=== PATIENT | male | born 1950 | race Caucasian/White ===

== ENCOUNTER 2018-11-19 09:38 | Emergency (ER) | payer BC ==
[2018-11-19 10:48] VITALS: BP 171/89
[2018-11-19] MEDS ORDERED: HYDROmorphone 2 MG/ML Syringe ONE ×3 (11:33→12:24)
[2018-11-19] MEDS: HYDROmorphone 2 MG/ML Syringe SUBCUT ONE (11:35)
--- NOTE | 2018-11-19 11:43 | CRLCT ---
DATE OF SERVICE: 11/19/2018 CLINICAL DATA: RUQ abdominal mass after coughing Unenhanced chest CT: Multislice acquisition through the chest without IV contrast was performed. No priors. There are emphysematous changes throughout both lungs. There are minimal atelectatic changes in the dependent portion of both lower lungs. There are linear densities in both lung bases consistent with linear atelectasis or fibrosis. The lungs otherwise clear. No areas of consolidation. No pneumothorax. No pleural effusions. The heart size is normal. There is mild coronary artery calcification. No aortic aneurysm. No hilar or mediastinal adenopathy. The thyroid gland is fractionally visualized. It is grossly enlarged. Graves' disease, thyroiditis, and other diffuse thyroid processes should be considered. The right rectus abdominis muscle is diffusely enlarged with heterogeneous attenuation consistent with a rectus abdominis hematoma. It is incompletely visualized on this chest CT. No other significant findings. MTDD
[2018-11-19] MEDS: Sodium Chloride 0.9% 1,000 ML IV SCH (11:55)
[2018-11-19] MEDS: HYDROmorphone 2 MG/ML Syringe IVPUSH ONE (11:55)
--- NOTE | 2018-11-19 12:00 | CRLCT ---
DATE OF SERVICE: 11/19/2018 CLINICAL DATA: Abdominal pain with RUQ mass. Started with coughing. Unenhanced abdomen CT: Multislice acquisition through the abdomen without IV or oral contrast was performed. No priors. The heart size is normal. The unenhanced liver appears normal. The gallbladder appears normal. No calcified gallstones. There are surgical changes adjacent to the GE junction region consistent with prior surgery. The spleen appears normal. The pancreas appears normal. The right and left adrenals appear normal. There is a 16mm rounded fluid density lesion in the interpolar region of the left kidney consistent with a benign cyst. There is a 8mm rounded low density lesion in the upper pole of the right kidney consistent with cyst. They are unchanged from the prior study. No nephrocalcinosis or nephrolithiasis. No hydronephrosis or hydroureter. The bladder is not visualized. The cecum is abnormally located within the midline of the abdomen anteriorly adjacent to the anterior abdominal wall between the stomach and liver. No evidence of obstruction associated with it. There is a large amount of stool present throughout the ascending and transverse colon. There is diverticulosis throughout the colon and severe diverticulosis of the descending colon. Sigmoid colon is not visualized. No evidence of diverticulitis. No free air. No free fluid. No dilated loops of bowel. No adenopathy. No aortic aneurysm. There is a small umbilical hernia containing fat. The right rectus abdominis muscle is grossly enlarged with heterogeneous hyperdensity consistent with a rectus abdominis muscle hematoma. I do not see any other significant findings. Impression: Large right rectus abdominis muscle hematoma. Multiple other findings as discussed above. MTDD
--- NOTE | 2018-11-19 12:18 | ER ---
HPI: A 68-year-old male who comes in with complaints of abdominal discomfort, holding his right upper abdomen in a gaurded fashion. He states that it just started today. The patient states that the pain comes and goes in waves, but with movement it seems like it was worse. He rates his pain as severe 9 or 10/10 with movement. He has not had any recent falls or injuries. The patient tells me that about 3 weeks ago he had an illness where he did a lot of coughing. At one point, he felt like something pulled or possibly tore in the right lower anterior chest wall. After this, his symptoms got better and he has been doing his normal activities. He states that he has worked the last 2 days, he works at a hardware store part- time. The patient has not been running a fever. He states that this morning is when the abdominal pain developed and it has been getting slowly worse. He denies any problems with coughing, shortness of breath, nausea, vomiting, or diarrhea. PAST MEDICAL HISTORY: Gout, hypertension, and chronic pain involving his back. The patient did take an Ultram tablet last evening. He also takes indomethacin p.r.n. for gout and pain. His last dose of this was last evening as well. OBJECTIVE: GENERAL APPEARANCE: The patient is awake and alert. He is in no obvious distress. Lying still. With any movement, he grimaces from pain and holds his right upper quadrant of the abdomen. VITAL SIGNS: Reviewed. Initial blood pressure is 184/100, temp is 99.1, pulse 72, respirations 22. HEENT: Oral mucous membranes moist. Tonsils not enlarged or injected. Pharynx not inflamed. LUNGS: Clear. CARDIAC: Heart sounds distinct without murmurs. ABDOMEN: Reveals an obvious mass in the upper right quadrant that is extremely tender with light palpation only. Bowel sounds are present. The remaining abdominal exam is normal. SKIN: Warm and dry. INITIAL TREATMENT: At this point, the patient states if he lay still, he is fairly comfortable. He is refusing pain medication. LABORATORY DATA: Labs include a CBC which is normal. Comprehensive metabolic panel was also unremarkable. Lipase is normal. Urine is normal. CT of the chest reveals a grossly enlarged thyroid, which is an incidental finding. CT of the abdomen reveals a rectus abdominis muscle hematoma that is diffusely enlarged. DIAGNOSES: 1. Acute abdominal pain with a rectus abdominis muscle hematoma. 2. Enlarged thyroid. TREATMENT PLAN: At this point, I consulted with the hospitalist at [place], who accepted the patient for observation. His condition is getting worse over the time he is spent with us in [place]. His pain is becoming more frequent and lasting longer even at rest. I did give the patient Dilaudid 1 mg subcu after the CT report was in, and we will start an IV with Normal saline and give another milligram of Dilaudid IV. A TSH was ordered. The patient will be transferred to [place] by ground ambulance. Arrangements are being made at this time. AFSHIN/SHITAL /[id number] MTDKatlyn
== END 2018-11-19 12:27 ==
LOC: LB.ED 09:38
DX: S30.1XXA Contusion of abdominal wall, initial encounter (principal); E04.9 Nontoxic goiter, unspecified; I10 Essential (primary) hypertension; X58.XXXA Exposure to other specified factors, initial encounter
CPT/HCPCS: 36415; 71250; 74150; 80053; 81001; 83690; 84443; 85025; 96372; 96374; 99285-25; A0425; A0429; J1170; J7030

== ENCOUNTER 2020-06-08 14:30 | Emergency (ER) | payer MEDICARE ==
[2020-06-08 14:58] LABS: CORONAVIRUS COVID-19 RAPID NEGATIVE
== END 2020-06-08 15:15 | disposition home or self-care (01) ==
LOC: LB.ED 14:30
DX: Z53.21 Procedure and treatment not carried out due to patient leaving prior to being seen by health care provider (principal)
CPT/HCPCS: U0002

== ENCOUNTER 2020-10-22 12:07 | Emergency (ER) | payer MEDICARE ==
[2020-10-22 12:50] VITALS: BP 138/83; PULSE 97
--- NOTE | 2020-10-22 13:17 | EDM.PDOC ---
ED HPI GENERAL MEDICAL PROBLEM - General Chief Complaint: General Stated Complaint: HEAD INJURY DUE TO FALL ON 10/15/20 AND RIB PAIN Time Seen by Provider: 10/22/20 12:30 Source of Information: Reports: Patient History Limitations: Reports: No Limitations - History of Present Illness INITIAL COMMENTS - FREE TEXT/NARRATIVE: 70 year old male with PMH of HTN and gout presents to ED seeking detox and treatment for alcohol. He states he has been heavily drinking for 1.5 years after his divorce. Admits to having only one vodka drink today. He has had tremors before but denies any withdrawl seizures. Denies any SI/HI. He also c/o dizziness and right rib pain. Onset: Today - Related Data Allergies Allergy/AdvReac Type Severity Reaction Status Date / Time house dust Allergy Mild Cannot Verified 10/22/20 12:41 Remember Home Meds: Home Meds amLODIPine Besylate [Amlodipine Besylate] 10 tab PO DAILY 10/21/13 [History] diphenhydrAMINE [Benadryl] 25 mg PO Q6H PRN 10/21/13 [History] traMADol [Ultram] 50 mg PO Q6HR PRN 10/21/13 [History] Naproxen 500 mg PO Q12HR 09/28/14 [History] hydroCHLOROthiazide [Hydrochlorothiazide] 25 mg PO DAILY 11/19/18 [History] lisinopriL [Prinivil] 40 mg PO DAILY 11/19/18 [History] ED ROS GENERAL - Review of Systems Review Of Systems: See Below Constitutional: Reports: No Symptoms HEENT: Reports: No Symptoms Respiratory: Reports: No Symptoms Cardiovascular: Reports: No Symptoms Endocrine: Reports: No Symptoms GI/Abdominal: Reports: No Symptoms : Reports: No Symptoms Musculoskeletal: Reports: No Symptoms, Other (right sided rib pain, xray reveals a fracture in the 10th rib) Skin: Reports: Bruising, Other (right ribs) Neurological: Reports: Dizziness Psychiatric: Reports: Anxiety Hematologic/Lymphatic: Reports: No Symptoms Immunologic: Reports: No Symptoms ED EXAM, GENERAL - Physical Exam Exam: See Below Exam Limited By: No Limitations General Appearance: Alert, No Apparent Distress Eye Exam: Bilateral Eye: Nystagmus, PERRL Ears: Normal External Exam, Normal Canal, Hearing Grossly Normal, Normal TMs Ear Exam: Bilateral Ear: Auricle Normal, Canal Normal, TM normal Nose: Normal Inspection, Normal Mucosa, No Blood Throat/Mouth: Normal Inspection, Normal Lips, Normal Teeth, Normal Gums, Normal Oropharynx, Normal Voice, No Airway Compromise Head: Atraumatic, Other (no wounds or bruising noted from slip and fall 1 week ago) Neck: Normal Inspection, Non-Tender, Full Range of Motion Respiratory/Chest: No Respiratory Distress, Lungs Clear, Normal Breath Sounds, No Accessory Muscle Use Cardiovascular: Normal Peripheral Pulses, Regular Rate, Rhythm, No Edema, No JVD, No Murmur Peripheral Pulses: 3+: Carotid (L), Carotid (R), Radial (L), Radial (R), Posterior Tibial (L), Posterior Tibial (R) GI/Abdominal: Normal Bowel Sounds, Soft, Non-Tender (Male) Exam: Deferred Rectal (Males) Exam: Deferred Back Exam: Normal Inspection, Full Range of Motion, Other (chronic back pain controlled with tramadol, scarring present from previous surgeries) Extremities: Normal Inspection, Normal Range of Motion, Non-Tender, No Pedal Edema, Normal Capillary Refill Neurological: Alert, Oriented, Normal Cognition, Normal Gait, No Motor/Sensory Deficits Psychiatric: Normal Affect, Normal Mood, Anxious Skin Exam: Warm, Dry, Intact, No Rash Lymphatic: No Adenopathy Course - Vital Signs Last Recorded V/S: Last Vital Signs Temp 98.6 F 10/22/20 12:46 Pulse 97 10/22/20 12:46 Resp 16 10/22/20 12:46 BP 138/83 10/22/20 12:46 Pulse Ox 98 10/22/20 12:46 - Orders/Labs/Meds Orders: Active Orders 24 hr Category Date Time Status CIWAA Assessment [RC] Q30M Care 10/22/20 12:51 Active Labs: Laboratory Tests 10/22/20 10/22/20 10/22/20 Range/Units 12:51 12:51 12:51 WBC 8.7 D (4.0-11.0) K/uL RBC 4.25 L (4.50-6.50) M/uL Hgb 14.6 (13.0-18.0) g/dL Hct 41.7 (40.0-54.0) % MCV 98 H (76-96) fL MCH 34.4 H (27.0-32.0) pg MCHC 35.0 (31.0-35.0) g/dL RDW 13.5 (11.0-16.0) % Plt Count 252 (150-400) K/uL MPV 10.2 H (6.0-10.0) fL Neut % (Auto) 63.6 (45.0-70.0) % Lymph % (Auto) 26.3 (20.0-40.0) % [place] % (Auto) 8.4 (3.0-10.0) % Eos % (Auto) 0.8 L (1.0-5.0) % Baso % (Auto) 0.9 H (0.0-0.5) % Neut # (Auto) 5.53 (2.00-7.50) K/uL Lymph # (Auto) 2.29 (1.50-4.00) K/uL [place] # (Auto) 0.73 (0.20-0.80) K/uL Eos # (Auto) 0.07 (0.04-0.40) K/uL Baso # (Auto) 0.08 (0.02-0.10) K/uL Sodium (136-145) mmol/L Potassium (3.5-5.1) mmol/L Chloride (98-107) mmol/L Carbon Dioxide (21.0-32.0) mmol/L Anion Gap (5.0-15.0) mmol/L BUN (8-26) mg/dL Creatinine (0.70-1.30) mg/dL Est Cr Clr Drug Dosing Estimated GFR (MDRD) (>60) MLS/MIN BUN/Creatinine Ratio (6-25) Glucose (74-100) mg/dL Calcium (8.5-10.1) mg/dL Total Bilirubin (0.0-1.0) mg/dL AST (15-37) U/L ALT (12-78) U/L Alkaline Phosphatase (46-116) U/L Total Protein (6.4-8.2) g/dL Albumin (3.4-5.0) g/dL Globulin (2.2-4.2) g/dL Albumin/Globulin Ratio (0.8-2.0) Urine Color Yellow Urine Appearance Clear (CLEAR) Urine pH 7.5 (5.0-8.0) Ur Specific [facility] 1.020 (1.003-1.030) Urine Protein 100 H (NEGATIVE) mg/dL Urine Glucose (UA) Negative (NEGATIVE) mg/dL Urine Ketones Trace H (NEGATIVE) mg/dL Urine Occult Blood Negative (NEGATIVE) Urine Nitrite Negative (NEGATIVE) Urine Bilirubin Negative (NEGATIVE) Urine Urobilinogen 1.0 (0.2-1.0) E.U./dL Ur Leukocyte Esterase Negative (NEGATIVE) Urine RBC Not seen /HPF Urine WBC 0-5 H /HPF Ur Squamous Epith Cells Few /HPF Urine Bacteria Few /HPF Urine Mucus Few /HPF Urine Opiates Screen Negative (NEGATIVE) Ur Oxycodone Screen Negative (NEGATIVE) Urine Methadone Screen Negative (NEGATIVE) Ur Barbiturates Screen Negative (NEGATIVE) Ur Tricyclics Screen Negative (NEGATIVE) Ur Phencyclidine Scrn Negative (NEGATIVE) Ur Amphetamine Screen Negative (NEGATIVE) U Methamphetamines Scrn Negative (NEGATIVE) Urine MDMA Screen Negative (NEGATIVE) U Benzodiazepines Scrn Negative (NEGATIVE) U Cocaine Metab Screen Negative (NEGATIVE) U Marijuana (THC) Screen Negative (NEGATIVE) Ethyl Alcohol (<3.0) mg/dL SARS-CoV-2 RNA (RANJANA) (NEGATIVE) 10/22/20 10/22/20 Range/Units 12:51 13:52 WBC (4.0-11.0) K/uL RBC (4.50-6.50) M/uL Hgb (13.0-18.0) g/dL Hct (40.0-54.0) % MCV (76-96) fL MCH (27.0-32.0) pg MCHC (31.0-35.0) g/dL RDW (11.0-16.0) % Plt Count (150-400) K/uL MPV (6.0-10.0) fL Neut % (Auto) (45.0-70.0) % Lymph % (Auto) (20.0-40.0) % [place] % (Auto) (3.0-10.0) % Eos % (Auto) (1.0-5.0) % Baso % (Auto) (0.0-0.5) % Neut # (Auto) (2.00-7.50) K/uL Lymph # (Auto) (1.50-4.00) K/uL [place] # (Auto) (0.20-0.80) K/uL Eos # (Auto) (0.04-0.40) K/uL Baso # (Auto) (0.02-0.10) K/uL Sodium 140 (136-145) mmol/L Potassium 3.4 L (3.5-5.1) mmol/L Chloride 100 (98-107) mmol/L Carbon Dioxide 22.6 D (21.0-32.0) mmol/L Anion Gap 20.8 H (5.0-15.0) mmol/L BUN 17 D (8-26) mg/dL Creatinine 1.06 (0.70-1.30) mg/dL Est Cr Clr Drug Dosing TNP Estimated GFR (MDRD) > 60 (>60) MLS/MIN BUN/Creatinine Ratio 16.0 (6-25) Glucose 118 H (74-100) mg/dL Calcium 8.9 (8.5-10.1) mg/dL Total Bilirubin 0.8 (0.0-1.0) mg/dL AST 136 H (15-37) U/L ALT 116 H (12-78) U/L Alkaline Phosphatase 107 (46-116) U/L Total Protein 8.3 H (6.4-8.2) g/dL Albumin 3.8 (3.4-5.0) g/dL Globulin 4.5 H (2.2-4.2) g/dL Albumin/Globulin Ratio 0.8 (0.8-2.0) Urine Color Urine Appearance (CLEAR) Urine pH (5.0-8.0) Ur Specific [facility] (1.003-1.030) Urine Protein (NEGATIVE) mg/dL Urine Glucose (UA) (NEGATIVE) mg/dL Urine Ketones (NEGATIVE) mg/dL Urine Occult Blood (NEGATIVE) Urine Nitrite (NEGATIVE) Urine Bilirubin (NEGATIVE) Urine Urobilinogen (0.2-1.0) E.U./dL Ur Leukocyte Esterase (NEGATIVE) Urine RBC /HPF Urine WBC /HPF Ur Squamous Epith Cells /HPF Urine Bacteria /HPF Urine Mucus /HPF Urine Opiates Screen (NEGATIVE) Ur Oxycodone Screen (NEGATIVE) Urine Methadone Screen (NEGATIVE) Ur Barbiturates Screen (NEGATIVE) Ur Tricyclics Screen (NEGATIVE) Ur Phencyclidine Scrn (NEGATIVE) Ur Amphetamine Screen (NEGATIVE) U Methamphetamines Scrn (NEGATIVE) Urine MDMA Screen (NEGATIVE) U Benzodiazepines Scrn (NEGATIVE) U Cocaine Metab Screen (NEGATIVE) U Marijuana (THC) Screen (NEGATIVE) Ethyl Alcohol 126.0 H (<3.0) mg/dL SARS-CoV-2 RNA (RANJANA) Negative (NEGATIVE) Meds: Medications Discontinued Medications Generic Name Dose Route Start Last Admin Trade Name Freq PRN Reason Stop Dose Admin Lorazepam 1 mg 10/22/20 14:10 10/22/20 14:12 Lorazepam 1 Mg Tab PO 10/22/20 14:11 1 mg ONETIME ONE Administration Lorazepam Confirm 10/22/20 14:22 10/22/20 14:43 Lorazepam 1 Mg Tab Administered 10/22/20 14:23 Not Given Dose 1 mg .ROUTE .STK-MED ONE Departure - Departure Time of Disposition: 14:54 Disposition: DC[facility] Clinical Impression: History of ETOH abuse EtOH dependence Qualifiers: Substance use status: unspecified alcohol-induced disorder Qualified Code(s): F10.29 - Alcohol dependence with unspecified alcohol-induced disorder - Discharge Information *PRESCRIPTION DRUG MONITORING PROGRAM REVIEWED*: Not Applicable *COPY OF PRESCRIPTION DRUG MONITORING REPORT IN PATIENT SHRUTI: Not Applicable Instructions: Alcohol Abuse and Dependence Information, Adult, Recovering From Addiction Referrals: PCP,None [Primary Care Provider] - Forms: ED Department Discharge Additional Instructions: [facility] in [place] is accepting you. You will detox for 3 days, and then they will admit you to the treatment center (as long as beds are available). Sepsis Event Note (ED) - Evaluation Sepsis Screening Result: No Definite Risk - Focused Exam Vital Signs: Vital Signs Temp Pulse Resp BP Pulse Ox 10/22/20 12:46 98.6 F 97 16 138/83 98 10/22/20 12:45 98.6 F 97 16 138/83 98 - My Orders Last 24 Hours: My Active Orders 10/22/20 12:51 CIWAA Assessment [RC] Q30M - Assessment/Plan Last 24 Hours: My Active Orders 10/22/20 12:51 CIWAA Assessment [RC] Q30M Plan: 1300 Called [facility] detox[facility]treatment center in [place] [phone] and spoke with Jean. The will accept the patient for detox with his prescription medication in the pharmacy bottles and a ride. We will fax the ETOH, UDS, and COVID results when they are reported to [phone]. Marty with renal social worker has arranged a ride for the patient, they will stop at his house to retrieve his belongings. He has found care for his cats. 1400 patient informed of broken rib. Waiting for results to fax.
--- NOTE | 2020-10-22 13:41 | CT ---
DATE OF SERVICE: 10/22/2020 CLINICAL DATA: FALL Unenhanced brain CT: Multi slice acquisition through the brain without IV contrast was performed. No priors. There is mild atrophy. There are periventricular lucencies bilaterally consistent with small vessel ischemic change. No masses or mass effect. No intracranial hemorrhage. No evidence of acute or subacute infarct. No osseous abnormalities. Impression: No acute intracranial abnormalities. MTDD
--- NOTE | 2020-10-22 13:45 | CR ---
DATE OF SERVICE: 10/22/2020 CLINICAL DATA: FALL PA chest and right ribs: The the heart size is normal. The aorta is ectatic. There are linear densities in both lower lungs consistent with linear atelectasis or fibrosis. The lungs are otherwise clear. No pneumothorax. No pleural effusions. There is a minimally displaced fracture of the right 11th rib cristhian laterally. There is also questionable fracture of the right 10th rib anteriorly. No other acute osseous abnormalities. There is degenerative disc disease throughout the thoracic spine. There are surgical changes at multiple levels in the lower thoracic and lumbar spine. MTDD
[2020-10-22] MEDS ORDERED: LORazepam 1 MG Tab PO ONE (14:10)
[2020-10-22] MEDS ORDERED: LORazepam 1 MG Tab ONE (14:22)
== END 2020-10-22 15:45 | disposition home or self-care (01) ==
LOC: LB.ED 12:07
DX: F10.29 Alcohol dependence with unspecified alcohol-induced disorder (principal); I10 Essential (primary) hypertension; Z79.899 Other long term (current) drug therapy; Z20.822 Contact with and (suspected) exposure to COVID-19; Z91.048 Other nonmedicinal substance allergy status; Y90.6 Blood alcohol level of 120-199 mg/100 ml
CPT/HCPCS: 36415; 70450; 71101-RT; 80053; 80307; 81001; 85025; 99283; 99284-25; A9270-GY; U0002

== ENCOUNTER 2021-01-07 18:34 | Emergency (ER) | payer MEDICARE ==
[2021-01-07] MEDS ORDERED: Sodium Chloride 0.9% 10 ML Syringe FLUSH PRN (18:58)
--- NOTE | 2021-01-07 19:02 | EDM.PDOC ---
ED HPI GENERAL MEDICAL PROBLEM - General Chief Complaint: Cardiovascular Problem Stated Complaint: DIZZINESS Time Seen by Provider: 01/07/21 19:02 Source of Information: Reports: Patient History Limitations: Reports: No Limitations - History of Present Illness INITIAL COMMENTS - FREE TEXT/NARRATIVE: presented to the ER with a c/o dizziness for several weeks, got worse over the last 2 days. worse upon getting out of bed and being active physically. Also reports easy SOB and palpitation. no CP. no h/o CAD, but has a h/o HTN for which he is on BP meds and HCTZ. non- smoker - quit 7-8 yrs ago. Onset: Gradual Duration: Week(s): (4) - Related Data Allergies Allergy/AdvReac Type Severity Reaction Status Date / Time house dust Allergy Mild Cannot Verified 10/22/20 12:41 Remember Home Meds: Home Meds diphenhydrAMINE [Benadryl] 75 mg PO QPM 10/21/13 [History] traMADol [Ultram] 50 mg PO Q6HR PRN 10/21/13 [History] hydroCHLOROthiazide [Hydrochlorothiazide] 25 mg PO DAILY 11/19/18 [History] lisinopriL [Prinivil] 40 mg PO DAILY 11/19/18 [History] Indomethacin [Indomethacin ER] 75 mg PO DAILY 10/22/20 [History] Apixaban [Eliquis] 5 mg PO DAILY #30 tablet 01/07/21 [Rx] Metoprolol Tartrate [Lopressor] 25 mg PO Q12HR #60 tab 01/07/21 [Rx] Potassium Chloride 10 meq PO BEDTIME #5 cap.er 01/07/21 [Rx] Past Medical History HEENT History: Reports: None Psychiatric History: Reports: Depression Social & Family History - Family History Family Medical History: No Pertinent Family History ED ROS GENERAL - Review of Systems Review Of Systems: See Below Constitutional: Reports: Fatigue HEENT: Reports: No Symptoms Respiratory: Reports: No Symptoms Cardiovascular: Reports: Dyspnea on Exertion, Palpitations GI/Abdominal: Reports: No Symptoms : Reports: No Symptoms Musculoskeletal: Reports: Back Pain Skin: Reports: No Symptoms Neurological: Reports: No Symptoms Psychiatric: Reports: No Symptoms ED EXAM, GENERAL - Physical Exam Exam: See Below Exam Limited By: No Limitations General Appearance: Alert, WD/WN, No Apparent Distress Eye Exam: Bilateral Eye: EOMI Neck: Normal Inspection Respiratory/Chest: No Respiratory Distress, Lungs Clear, Normal Breath Sounds Cardiovascular: Tachycardia, Irregularly Irregular GI/Abdominal: Normal Bowel Sounds, Soft, Non-Tender Back Exam: Normal Inspection Extremities: Normal Inspection, Normal Range of Motion Neurological: Alert, Oriented, No Motor/Sensory Deficits Psychiatric: Normal Affect, Normal Mood #1 Interpretation EKG Date: 01/07/21 Rhythm: A-Fib [place]: Normal P-Wave: Absent QRS: Normal ST-T: Normal QT: Normal Comparison: NA - No Prior EKG Course - Vital Signs Last Recorded V/S: Last Vital Signs Temp 36.8 C 01/07/21 18:50 Pulse 55 L 01/07/21 22:15 Resp 18 01/07/21 18:50 BP 138/71 01/07/21 22:15 Pulse Ox 97 01/07/21 18:50 - Orders/Labs/Meds Orders: Active Orders 24 hr Category Date Time Status Saline Lock Insert [OM.PC] Routine Oth 01/07/21 18:58 Ordered Labs: Laboratory Tests 01/07/21 01/07/21 01/07/21 Range/Units 19:15 19:15 19:15 WBC 11.3 H D (4.0-11.0) K/uL RBC 4.26 L (4.50-6.50) M/uL Hgb 13.8 (13.0-18.0) g/dL Hct 39.6 L (40.0-54.0) % MCV 93 (76-96) fL MCH 32.4 H (27.0-32.0) pg MCHC 34.8 (31.0-35.0) g/dL RDW 11.8 (11.0-16.0) % Plt Count 369 D (150-400) K/uL MPV 10.2 H (6.0-10.0) fL D-Dimer, Quantitative 4140 H (0-400) ng/mL Sodium 135 L (136-145) mmol/L Potassium 3.3 L (3.5-5.1) mmol/L Chloride 96 L (98-107) mmol/L Carbon Dioxide 28.4 (21.0-32.0) mmol/L Anion Gap 13.9 (5.0-15.0) mmol/L BUN 19 (8-26) mg/dL Creatinine 1.19 (0.70-1.30) mg/dL Est Cr Clr Drug Dosing TNP Estimated GFR (MDRD) > 60 (>60) MLS/MIN BUN/Creatinine Ratio 16.0 (6-25) Glucose 103 H (74-100) mg/dL Calcium 9.2 (8.5-10.1) mg/dL Phosphorus (2.5-4.9) mg/dL Magnesium (1.8-2.4) mg/dL Troponin I < 0.017 (0.000-0.060) ng/mL TSH, Ultra Sensitive (0.358-3.740) uIU/mL 01/07/21 Range/Units 19:15 WBC (4.0-11.0) K/uL RBC (4.50-6.50) M/uL Hgb (13.0-18.0) g/dL Hct (40.0-54.0) % MCV (76-96) fL MCH (27.0-32.0) pg MCHC (31.0-35.0) g/dL RDW (11.0-16.0) % Plt Count (150-400) K/uL MPV (6.0-10.0) fL D-Dimer, Quantitative (0-400) ng/mL Sodium (136-145) mmol/L Potassium (3.5-5.1) mmol/L Chloride (98-107) mmol/L Carbon Dioxide (21.0-32.0) mmol/L Anion Gap (5.0-15.0) mmol/L BUN (8-26) mg/dL Creatinine (0.70-1.30) mg/dL Est Cr Clr Drug Dosing Estimated GFR (MDRD) (>60) MLS/MIN BUN/Creatinine Ratio (6-25) Glucose (74-100) mg/dL Calcium (8.5-10.1) mg/dL Phosphorus 3.2 (2.5-4.9) mg/dL Magnesium 1.8 (1.8-2.4) mg/dL Troponin I (0.000-0.060) ng/mL TSH, Ultra Sensitive 3.177 D (0.358-3.740) uIU/mL Meds: Medications Discontinued Medications Generic Name Dose Route Start Last Admin Trade Name Freq PRN Reason Stop Dose Admin Apixaban 5 mg 01/07/21 19:18 01/07/21 19:31 Apixaban 5 Mg Tab PO 01/07/21 19:19 5 mg ONETIME ONE Administration Sodium Chloride 1,000 mls @ 999 mls/hr 01/07/21 18:59 01/07/21 19:23 Normal Saline IV 01/07/21 19:59 999 mls/hr .BOLUS ONE Administration Iopamidol 100 ml 01/07/21 20:15 Iopamidol 755 Mg/Ml 100 Ml Bottle IV . DIRECTED RAUL Metoprolol Tartrate 5 mg 01/07/21 18:59 01/07/21 19:23 Metoprolol Tartrate 5 Mg/5 Ml Sdv IVPUSH 01/07/21 19:00 5 mg ONETIME ONE Administration Metoprolol Tartrate Confirm 01/07/21 19:28 01/08/21 04:30 Metoprolol Tartrate 5 Mg/5 Ml Sdv Administered 01/07/21 19:29 Not Given Dose 5 mg .ROUTE .STK-MED ONE Potassium Chloride 20 meq 01/07/21 21:56 01/08/21 04:30 Potassium Chloride 20 Meq Tab.Er PO 01/07/21 21:57 Not Given ONETIME ONE Sodium Chloride 10 ml 01/07/21 18:58 Sodium Chloride 0.9% 10 Ml Syringe FLUSH ASDIRECTED PRN Keep Vein Open Sodium Chloride 50 ml 01/07/21 20:13 Sodium Chloride 0.9% 50 Ml Sdv FLUSH 01/07/21 20:14 ONETIME ONE - Re-Assessments/Exams Free Text/Narrative Re-Assessment/Exam: was connected to a monitor EKG showed afib w RVR IV line was established Cardiac labs were ordered IVF bolus was given IV Lopressor 5 mg was given - HR down to 90's labs significant for elevation in ddimer > 4000 CT scan chest w IV contrast - no e/o infiltrations or PE. Eliquis po was given and prescribed, as well as metoprolol 25mg PO K was found to be slightly low - a prescription was given Departure - Departure Time of Disposition: 22:45 Disposition: Home, Self-Care 01 Condition: Good Clinical Impression: Hypokalemia Afib Qualifiers: Atrial fibrillation type: persistent (not longstanding) Qualified Code(s): I48.19 - Other persistent atrial fibrillation Prescriptions: Apixaban [Eliquis] 5 mg PO DAILY #30 tablet Metoprolol Tartrate [Lopressor] 25 mg PO Q12HR #60 tab Potassium Chloride 10 meq PO BEDTIME #5 cap.er Instructions: Atrial Fibrillation, [id number] Referrals: PCP,None [Primary Care Provider] - Forms: ED Department Discharge Additional Instructions: - recommend to start metoprolol twice daily as prescribed - stop taking amlodepine -- continue with the other meds - start taking blood thinner as prescribed - follow up with your PCP in 1-2 weeks - increase fluids intake - return to the ER if symptoms got worse or any concerns Sepsis Event Note (ED) - Focused Exam Vital Signs: Vital Signs Pulse BP 01/07/21 22:15 55 L 138/71 - Problem List & Annotations (1) Afib SNOMED Code(s): 97191434 Code(s): I48.91 - UNSPECIFIED ATRIAL FIBRILLATION Status: Acute Priority: Low Qualifiers: Atrial fibrillation type: persistent (not longstanding) Qualified Code(s): I48.19 - Other persistent atrial fibrillation; I48.1 - Persistent atrial fibrillation (2) Hypokalemia SNOMED Code(s): 22091936 Code(s): E87.6 - HYPOKALEMIA Status: Acute Priority: Low - Problem List Review Problem List Initiated/Reviewed/Updated: Yes - My Orders Last 24 Hours: My Active Orders 01/07/21 18:58 Saline Lock Insert [OM.PC] Routine - Assessment/Plan Last 24 Hours: My Active Orders 01/07/21 18:58 Saline Lock Insert [OM.PC] Routine Plan: - recommend to start metoprolol twice daily as prescribed - stop taking amlodepine -- continue with the other meds - start taking blood thinner as prescribed - follow up with your PCP in 1-2 weeks - increase fluids intake - return to the ER if symptoms got worse or any concerns
[2021-01-07] MEDS: Metoprolol Tartrate 5 MG/5 ML SDV IVPUSH ONE (19:23)
[2021-01-07] MEDS: Sodium Chloride 0.9% 1,000 ML IV ONE (19:23)
[2021-01-07] MEDS: Apixaban 5 MG Tab PO ONE (19:31)
[2021-01-07] MEDS ORDERED: Sodium Chloride 0.9% 50 ML SDV FLUSH ONE (20:13)
[2021-01-07] MEDS ORDERED: Iopamidol 755 Mg/ML 100 ML Bottle IV SCH (20:15)
[2021-01-08] MEDS: Potassium Chloride 20 MEQ Tab.ER PO ONE (04:30)
[2021-01-08] MEDS: Metoprolol Tartrate 5 MG/5 ML SDV ONE (04:30)
[2021-01-08 04:35] VITALS: BP 138/71; PULSE 55
--- NOTE | 2021-01-08 07:16 | CR ---
Date of Service: 01/07/21 Clinical Data: afib, dizziness AP CHEST: Comparison is made to a prior exam dated 10/22/20 . The patient has taken a poor inspiration. The heart size is within normal limits. The aorta is ectatic. There is a linear density in the left lower lung consistent with linear atelectasis or fibrosis. The lungs are otherwise clear. No pneumothorax. No pleural effusions. [id number] [facility]
--- NOTE | 2021-01-08 07:51 | CT ---
Date of Service: 01/07/21 Clinical Data: rule out PE ENHANCED CHEST CT: Multislice acquisition through the chest with IV contrast was performed. Comparison is made to a prior exam dated 11/19/18. No evidence of PE. No pneumothorax. No pleural effusions. No aortic aneurysm or dissection. There are atelectatic changes in the dependent portion of both lower lungs with areas of consolidation bilaterally. Pneumonia should be considered. The lungs are otherwise clear. The heart size is within normal limits. There are coronary artery calcifications. No significant pericardial effusion. No hilar or mediastinal adenopathy. There are surgical changes in the region of the GE junction. The thyroid gland is enlarged. There is a low-density lesion in the left lobe of the thyroid. Thyroid ultrasound is recommended. No other significant findings. [id number] [facility]
== END 2021-01-07 22:26 | disposition home or self-care (01) ==
LOC: LB.ED 18:34
DX: I48.19 Other persistent atrial fibrillation (principal); E87.6 Hypokalemia; Z79.01 Long term (current) use of anticoagulants; Z79.899 Other long term (current) drug therapy; Z91.09 Other allergy status, other than to drugs and biological substances
CPT/HCPCS: 36415; 71045; 71260; 80048; 83735; 84100; 84443; 84484; 85027; 85379; 93005; 93010; 96374; 99284; 99285-25; A9270-GY; J3490; J7030

== ENCOUNTER 2021-03-02 13:01 | Emergency (ER) | payer MEDICARE ==
[2021-03-02 13:41] VITALS: BP 160/89; PULSE 119
[2021-03-02] MEDS ORDERED: methylPREDNISolone Sodium Succinate 125 MG/2 ML SDV IM ONE (13:44)
[2021-03-02] MEDS ORDERED: Ketorolac 60 MG/2 ML SDV IM ONE (13:44)
--- NOTE | 2021-03-02 13:48 | EDM.PDOC ---
ED HPI GENERAL MEDICAL PROBLEM - General Chief Complaint: Lower Extremity Injury/Pain Stated Complaint: gout Time Seen by Provider: 03/02/21 13:20 Source of Information: Reports: Patient History Limitations: Reports: No Limitations - History of Present Illness INITIAL COMMENTS - FREE TEXT/NARRATIVE: patient with a h/o gout who presented to the ER with a c/o right great toe pain for 2 days. He reports swelling and redness - pain 10 out of 10. He ran out of tramadol. Also stopped taking indomethacin since he was started on blood thinners for a h/o a fib. He is not on allopurinol - reports his uric acid levels are usually normal and he avoid meat. no fever or chills hard for him to walk around, Onset: Gradual Duration: Day(s): (3) Location: Reports: Lower Extremity, Right Quality: Reports: Sharp Severity: Severe Improves with: Reports: None Worsens with: Reports: Movement Right Toe-[place] Pain Score (Numeric/FACES): 8 - Related Data Allergies Allergy/AdvReac Type Severity Reaction Status Date / Time house dust Allergy Mild Cannot Verified 03/02/21 13:47 Remember Home Meds: Home Meds diphenhydrAMINE [Benadryl] 75 mg PO QPM 10/21/13 [History] traMADol [Ultram] 50 mg PO Q6HR PRN 10/21/13 [History] hydroCHLOROthiazide [Hydrochlorothiazide] 25 mg PO DAILY 11/19/18 [History] lisinopriL [Prinivil] 40 mg PO DAILY 11/19/18 [History] Indomethacin [Indomethacin ER] 75 mg PO DAILY 10/22/20 [History] Apixaban [Eliquis] 5 mg PO DAILY #30 tablet 01/07/21 [Rx] Metoprolol Tartrate [Lopressor] 25 mg PO Q12HR #60 tab 01/07/21 [Rx] Potassium Chloride 10 meq PO BEDTIME #5 cap.er 01/07/21 [Rx] methylPREDNISolone [Medrol Dose Pack] 84 mg PO DAILY #1 dospk 03/02/21 [Rx] Past Medical History HEENT History: Reports: None Cardiovascular History: Reports: Afib, Hypertension Musculoskeletal History: Reports: Back Pain, Chronic, Gout Psychiatric History: Reports: Depression - Infectious Disease History Infectious Disease History: Reports: Chicken Pox Social & Family History - Family History Family Medical History: No Pertinent Family History - Tobacco Use Tobacco Use Status *Q: Never Tobacco User - Caffeine Use Caffeine Use: Reports: None Review of Systems - Review of Systems Review Of Systems: See Below Constitutional: Reports: No Symptoms Respiratory: Reports: No Symptoms Cardiovascular: Reports: No Symptoms Skin: Reports: No Symptoms Neurological: Reports: No Symptoms Psychiatric: Reports: No Symptoms ED EXAM, GENERAL - Physical Exam Exam: See Below Exam Limited By: No Limitations General Appearance: Alert, WD/WN Eye Exam: Bilateral Eye: EOMI Respiratory/Chest: No Respiratory Distress Cardiovascular: Normal Peripheral Pulses GI/Abdominal: Normal Bowel Sounds Extremities: Other (right great toe - red, mild swelling and TPP. Limited ROM due to pain ) Course - Vital Signs Last Recorded V/S: Last Vital Signs Temp 37.0 C 03/02/21 13:28 Pulse 119 H 03/02/21 13:28 Resp 16 03/02/21 13:28 BP 160/89 H 03/02/21 13:28 Pulse Ox 96 03/02/21 13:28 - Orders/Labs/Meds Meds: Medications Discontinued Medications Generic Name Dose Route Start Last Admin Trade Name Pepeq PRN Reason Stop Dose Admin Ketorolac Tromethamine 60 mg 03/02/21 13:44 03/02/21 13:54 Ketorolac 60 Mg/2 Ml Sdv IM 03/02/21 13:45 60 mg ONETIME ONE Administration Methylprednisolone Sodium Succinate 125 mg 03/02/21 13:44 03/02/21 13:53 Methylprednisolone Sodium Succinate 125 Mg/2 Ml Sdv IM 03/02/21 13:45 125 mg ONETIME ONE Administration Tramadol HCl 50 mg 03/02/21 14:44 Tramadol 50 Mg Tab PO 03/02/21 14:45 ONETIME ONE - Re-Assessments/Exams Free Text/Narrative Re-Assessment/Exam: IM Toradol and IM solumedrol were given. 03/02/21 14:48 reports improvement in back and toe pain will d/c patient home on prednisone for next week. Departure - Departure Time of Disposition: 14:49 Disposition: Home, Self-Care 01 Condition: Good Clinical Impression: Gout flare Qualifiers: Gout site: toe Gout etiology: unspecified cause Laterality: right Qualified Code(s): M10.9 - Gout, unspecified - Discharge Information *PRESCRIPTION DRUG MONITORING PROGRAM REVIEWED*: Not Applicable *COPY OF PRESCRIPTION DRUG MONITORING REPORT IN PATIENT SHRUTI: Not Applicable Prescriptions: methylPREDNISolone [Medrol Dose Pack] 84 mg PO DAILY #1 dospk Instructions: Gout, [id number] Forms: ED Department Discharge Additional Instructions: - take prednisone as prescribed - recommend to restart taking allopurinol - even if uric acid levels are normal - as it can decreases the frequencies of gout attacks - avoid red meat and alcohol intake - as they can exacerbate the gout attacks - follow up with your PCP in 3-7 days as needed - return to the ER if symptoms got worse or pain not resolved in 2-3 days Sepsis Event Note (ED) - Evaluation Sepsis Screening Result: No Definite Risk - Focused Exam Vital Signs: Vital Signs Temp Pulse Resp BP Pulse Ox 03/02/21 13:28 37.0 C 119 H 16 160/89 H 96 - Problem List & Annotations (1) Gout flare SNOMED Code(s): 206023687 Code(s): M10.9 - GOUT, UNSPECIFIED Status: Acute Priority: Low Qualifiers: Gout site: toe Gout etiology: unspecified cause Laterality: right Qualified Code(s): M10.9 - Gout, unspecified - Problem List Review Problem List Initiated/Reviewed/Updated: Yes - Assessment/Plan Plan: - take prednisone as prescribed - recommend to restart taking allopurinol - even if uric acid levels are normal - as it can decreases the frequencies of gout attacks - avoid red meat and alcohol intake - as they can exacerbate the gout attacks - follow up with your PCP in 3-7 days as needed - return to the ER if symptoms got worse or pain not resolved in 2-3 days
[2021-03-02] MEDS ORDERED: traMADol 50 MG Tab ONE (13:50)
[2021-03-02] MEDS ORDERED: traMADol 50 MG Tab PO ONE (14:44)
== END 2021-03-02 15:15 | disposition home or self-care (01) ==
LOC: LB.ED 13:01
DX: M10.9 Gout, unspecified (principal); I48.91 Unspecified atrial fibrillation; I10 Essential (primary) hypertension; Z79.01 Long term (current) use of anticoagulants; Z91.09 Other allergy status, other than to drugs and biological substances; Z79.899 Other long term (current) drug therapy
CPT/HCPCS: 96372; 99283; A9270; J1885; J2930

== ENCOUNTER 2021-11-06 02:22 | Emergency (ER) | payer MEDICARE ==
[2021-11-06 07:05] VITALS: BP 149/69; PULSE 62
== END 2021-11-06 06:43 | disposition home or self-care (01) ==
LOC: LB.ED 02:22
DX: U07.1 COVID-19 (principal); I48.91 Unspecified atrial fibrillation; I10 Essential (primary) hypertension; Z79.01 Long term (current) use of anticoagulants; Z91.048 Other nonmedicinal substance allergy status; Z79.899 Other long term (current) drug therapy
CPT/HCPCS: 36415; 71250; 74176; 80053; 83605; 83690; 84484; 85025; 87804; 87804-59; 93005; 99282; 99285-25; U0002

== ENCOUNTER 2023-11-03 13:01 | Inpatient (IN) | payer MEDICARE ==
[2023-11-03 21:56] LABS: HEMATOCRIT 33.2 % (40.0-54.0); HEMOGLOBIN 11.2 g/dL (13.0-18.0); MEAN CORPUSCULAR HGB CONC 33.7 g/dL (31.0-35.0); MEAN PLATELET VOLUME 10.7 fL (6.0-10.0); RED BLOOD CELL COUNT 3.5 M/uL (4.50-6.50); RED CELL DISTRIBUTION WIDTH 14.1 % (11.0-16.0); WHITE BLOOD CELL COUNT,WBC 10.1 K/uL (4.0-11.0)
[2023-11-03] MEDS: Flecainide 100 MG Tab PO SCH (21:56)
[2023-11-03] MEDS: DULoxetine 30 MG Cap PO SCH (21:56)
[2023-11-03] MEDS: Melatonin 10 MG Cap PO PRN (21:56)
[2023-11-03] MEDS: Docusate Sodium 100 MG Cap PO SCH (21:56)
[2023-11-03] MEDS: Metoprolol Tartrate 25 MG Tab PO SCH (21:56)
[2023-11-03] MEDS: Apixaban 5 MG Tab PO SCH (21:57)
[2023-11-03] MEDS: Acetaminophen 500 MG Tab PO PRN (21:59)
[2023-11-03 22:07] LABS: ANION GAP 10.4 mmol/L (5.0-15.0); CALCIUM 8.3 mg/dL (8.5-10.1); CARBON DIOXIDE,CO2 28.2 mmol/L (21.0-32.0); CREATININE 1.08 mg/dL (0.70-1.30); EST CRCL DRUG DOSING (CG) 64.87 mL/min; POTASSIUM,K 3.6 mmol/L (3.5-5.1)
[2023-11-03] MEDS: Amoxicillin/Clavulanate K 875-125 MG Tab PO SCH (23:01)
[2023-11-04] MEDS: oxyCODONE 5 MG Tab PO PRN (00:54)
[2023-11-04] MEDS: Acetaminophen 500 MG Tab PO PRN (04:42)
[2023-11-04] MEDS: Lisinopril 20 MG Tab PO SCH (08:01)
[2023-11-04] MEDS: Allopurinol 300 MG Tab PO SCH (08:02)
[2023-11-04] MEDS: Multivitamin Tab PO SCH (08:02)
[2023-11-04] MEDS: Furosemide 20 MG Tab PO SCH (08:03)
[2023-11-04] MEDS: Tamsulosin 0.4 MG Cap.ER PO SCH (08:07)
[2023-11-04] MEDS: Tuberculin, PPD 5 Units/0.1 ML 1 ML MDV IDERM ONE (10:05)
[2023-11-04] MEDS: traMADol 50 MG Tab PO PRN (13:23)
[2023-11-06 07:56] VITALS: PULSE 50
[2023-11-06 10:42] VITALS: BP 129/57
== END 2023-11-06 10:58 | disposition home or self-care (01) | DRG 561 ==
LOC: LB.MS 18:30
PROVIDERS: ADMIT Surgery; ATTEND Surgery
DX: Z47.89 Encounter for other orthopedic aftercare (principal); F11.90 Opioid use, unspecified, uncomplicated; N40.0 Benign prostatic hyperplasia without lower urinary tract symptoms; I48.91 Unspecified atrial fibrillation; F32.A Depression, unspecified; G89.29 Other chronic pain; M54.9 Dorsalgia, unspecified; I10 Essential (primary) hypertension; Z98.1 Arthrodesis status; Z88.8 Allergy status to other drugs, medicaments and biological substances; Z97.4 Presence of external hearing-aid; Z79.01 Long term (current) use of anticoagulants
CPT/HCPCS: 36415; 80048; 85027; 86580; 97116-GP; 97161-GP; 97165-GO; 97530-GP; 97535-GO; A9270-GY

== ENCOUNTER 2023-11-27 17:00 | Emergency (ER) | payer MEDICARE ==
[2023-11-27 17:35] LABS: BASOPHILS ABSOLUTE AUTO 0.04 K/uL (0.02-0.10); BASOPHILS PERCENT AUTO 0.3 % (0.0-0.5); EOSINOPHILS ABSOLUTE AUTO 0.08 K/uL (0.04-0.40); EOSINOPHILS PERCENT AUTO 0.6 % (1.0-5.0); HEMATOCRIT 36.5 % (40.0-54.0); HEMOGLOBIN 12.2 g/dL (13.0-18.0); LYMPHOCYTES ABSOLUTE AUTO 0.66 K/uL (1.50-4.00); LYMPHOCYTES PERCENT AUTO 4.8 % (20.0-40.0); MEAN CORPUSCULAR HEMOGLOBIN 31.4 pg (27.0-32.0); MEAN CORPUSCULAR HGB CONC 33.4 g/dL (31.0-35.0); MEAN CORPUSCULAR VOLUME 94 fL (76-96); MEAN PLATELET VOLUME 9.7 fL (6.0-10.0); MONOCYTES ABSOLUTE AUTO 0.74 K/uL (0.20-0.80); MONOCYTES PERCENT AUTO 5.3 % (3.0-10.0); NEUTROPHILS ABSOLUTE AUTO 12.33 K/uL (2.00-7.50); PLATELET COUNT,PLT 338 K/uL (150-400); RED BLOOD CELL COUNT 3.88 M/uL (4.50-6.50); WHITE BLOOD CELL COUNT,WBC 13.9 K/uL (4.0-11.0)
[2023-11-27 17:36] LABS: APPEARANCE,URINE CLEAR (CLEAR); BILIRUBIN,URINE NEGATIVE (NEGATIVE); COLOR,URINE YELLOW; GLUCOSE,URINE NEGATIVE (NEGATIVE); KETONES,URINE NEGATIVE (NEGATIVE); LEUKOCYTE ESTERASE,URINE NEGATIVE (NEGATIVE); NITRITE,URINE NEGATIVE (NEGATIVE); OCCULT BLOOD,URINE TRACE-INTACT (NEGATIVE); PROTEIN,URINE NEGATIVE (NEGATIVE); UROBILINOGEN,URINE 0.2 E.U./dL (0.2-1.0)
[2023-11-27 17:40] LABS: EPITHELIAL CELLS,URINE OCCASIONAL /HPF; RBC,URINE 0-5 /HPF; WBC,URINE NOT SEEN /HPF
[2023-11-27 19:32] VITALS: BP 143/73; PULSE 75
== END 2023-11-27 20:15 | disposition home or self-care (01) ==
LOC: LB.ED 17:00
DX: M25.551 Pain in right hip (principal); M25.552 Pain in left hip; I48.91 Unspecified atrial fibrillation
CPT/HCPCS: 36415; 72131; 72192; 81001; 85025; 99284

== ENCOUNTER 2024-02-08 11:34 | Inpatient (IN) | payer MEDICARE ==
[2024-02-08] MEDS ORDERED: Non-Formulary Medication 1 Each (Melatonin [Melatonin] 10 MG Tablet) PO PRN (14:40)
[2024-02-08] MEDS ORDERED: Cyclobenzaprine 10 MG Tab PO PRN (14:40)
[2024-02-08] MEDS ORDERED: oxyCODONE 5 MG Tab PO PRN (16:30)
[2024-02-08] MEDS: Tuberculin, PPD 5 Units/0.1 ML 1 ML MDV IDERM ONE (17:10)
[2024-02-08] MEDS: Ertapenem 1 GM in Sodium Chloride 0.9% 50 ML IV SCH ×2 (17:40→19:09)
[2024-02-08] MEDS: Miconazole 2% Crm 30 GM Tube TOP SCH (19:09)
[2024-02-08] MEDS: Metoprolol Tartrate 25 MG Tab PO SCH (19:10)
[2024-02-08] MEDS: Apixaban 5 MG Tab PO SCH (19:10)
[2024-02-08] MEDS: Pantoprazole 40 MG Tab.CR PO SCH (19:10)
[2024-02-08] MEDS: DULoxetine 30 MG Cap PO SCH (19:10)
[2024-02-08] MEDS: Gabapentin 400 MG Cap PO SCH (19:10)
[2024-02-08] MEDS ORDERED: Non-Formulary Medication 1 Each (Ertapenem [Invanz] 1 GM) IV SCH (20:00)
[2024-02-08] MEDS ORDERED: Miconazole 2% Crm 30 GM Tube TOP SCH (20:00)
[2024-02-08] MEDS: Sodium Chloride 0.9% 250 ML IV SCH (20:07)
[2024-02-08] MEDS ORDERED: Sodium Chloride 0.9% 10 ML Syringe FLUSH PRN (20:16)
[2024-02-08] MEDS: Naloxone 2 MG/2 ML Syringe IVPUSH PRN (21:17)
[2024-02-08] MEDS ORDERED: Naloxone 2 MG/2 ML Syringe IVPUSH PRN (21:30)
[2024-02-08] MEDS: Acetaminophen 500 MG Tab PO PRN (22:12)
[2024-02-09] MEDS: Naloxone 2 MG/2 ML Syringe ONE (02:42)
[2024-02-09] MEDS ORDERED: [UNRECOGNIZED DRUG - OTHER] PO SCH (08:00)
[2024-02-09] MEDS ORDERED: MULTIVIT WITH CALCIUM IRON MIN PO SCH (08:00)
[2024-02-09] MEDS ORDERED: ERTAPENEM 1 GM IV SCH (08:00)
[2024-02-09] MEDS ORDERED: Non-Formulary Medication 1 Each (Potassium Chloride [Potassium Chloride] 20 MEQ Tablet.Er) PO SCH (08:00)
[2024-02-09 09:10] LABS: A/G RATIO 0.5 (0.8-2.0); ALKALINE PHOSPHATASE 120 U/L (46-116); ANION GAP 14.5 mmol/L (5.0-15.0); BILIRUBIN TOTAL 0.4 mg/dL (0.0-1.0); BLOOD UREA NITROGEN,BUN 15 mg/dL (8-26); CALCIUM 8.3 mg/dL (8.5-10.1); CARBON DIOXIDE,CO2 23.5 mmol/L (21.0-32.0); CHLORIDE,CL 104 mmol/L (98-107); GLUCOSE RANDOM 85 mg/dL (74-100); MAGNESIUM 1.9 mg/dL (1.8-2.4); PROTEIN TOTAL,TP 6.1 g/dL (6.4-8.2); SODIUM,NA 138 mmol/L (136-145)
[2024-02-09 09:12] LABS: BASOPHILS ABSOLUTE AUTO 0.04 K/uL (0.02-0.10); BASOPHILS PERCENT AUTO 0.5 % (0.0-0.5); EOSINOPHILS ABSOLUTE AUTO 0.17 K/uL (0.04-0.40); EOSINOPHILS PERCENT AUTO 2.2 % (1.0-5.0); HEMATOCRIT 28.2 % (40.0-54.0); HEMOGLOBIN 8.9 g/dL (13.0-18.0); LYMPHOCYTES ABSOLUTE AUTO 1.87 K/uL (1.50-4.00); LYMPHOCYTES PERCENT AUTO 24.5 % (20.0-40.0); MEAN CORPUSCULAR HEMOGLOBIN 29.1 pg (27.0-32.0); MEAN CORPUSCULAR HGB CONC 31.6 g/dL (31.0-35.0); MEAN CORPUSCULAR VOLUME 92 fL (76-96); MEAN PLATELET VOLUME 10.8 fL (6.0-10.0); MONOCYTES ABSOLUTE AUTO 0.63 K/uL (0.20-0.80); MONOCYTES PERCENT AUTO 8.3 % (3.0-10.0); NEUTROPHILS ABSOLUTE AUTO 4.92 K/uL (2.00-7.50); NEUTROPHILS PERCENT AUTO 64.5 % (45.0-70.0); PLATELET COUNT,PLT 318 K/uL (150-400); RED BLOOD CELL COUNT 3.06 M/uL (4.50-6.50); RED CELL DISTRIBUTION WIDTH 17.9 % (11.0-16.0); WHITE BLOOD CELL COUNT,WBC 7.6 K/uL (4.0-11.0)
[2024-02-09] MEDS: Lidocaine 5% 700 MG Patch TRDERM SCH (09:24)
[2024-02-09] MEDS: Amiodarone 200 MG Tab PO SCH (09:24)
[2024-02-09] MEDS: Potassium Chloride 20 MEQ Tab.ER PO SCH (09:25)
[2024-02-09] MEDS: Multivitamin Tab PO SCH (09:25)
[2024-02-09] MEDS: Lactobacillus Acidophilus/Lactobacillus Sporogenes (Probiotic) Tab PO SCH (09:25)
[2024-02-09] MEDS: Tamsulosin 0.4 MG Cap.ER PO SCH (09:25)
[2024-02-09] MEDS: Allopurinol 100 MG Tab PO SCH (09:25)
[2024-02-09 09:37] LABS: ALANINE AMINOTRANSFERASE,ALT 9 U/L (12-78); ASPARTATE AMNIOTRANSFERASE,AST 15 U/L (15-37); BUN/CREATININE RATIO 12.7 (6-25); CREATININE 1.18 mg/dL (0.70-1.30); ESTIMATED GFR 64 mL/min (>60)
[2024-02-09] MEDS: Ketorolac 30 MG/ML SDV IVPUSH PRN (10:43)
[2024-02-09] MEDS: OXYCODONE HCL 20 MG PO SCH (14:40)
[2024-02-09] MEDS: OXYCODONE HCL 10 MG PO SCH (14:40)
[2024-02-09] MEDS ORDERED: Gabapentin 400 MG Cap PO SCH (14:45)
[2024-02-09] MEDS: Melatonin 10 MG Cap PO PRN (19:27)
[2024-02-09] MEDS: Gabapentin 300 MG Cap PO SCH (19:27)
[2024-02-09] MEDS: oxyCODONE ER 10 MG TAB.ER PO SCH (19:30)
[2024-02-09] MEDS ORDERED: OXYCODONE HCL 5 MG PO SCH (20:00)
[2024-02-09] MEDS ORDERED: OXYCODONE HCL 10 MG PO SCH (20:00)
[2024-02-10] MEDS: Ondansetron 4 MG/2 ML SDV ONE (02:36)
[2024-02-11] MEDS: Loperamide 2 MG Cap PO PRN (00:24)
[2024-02-11 08:43] LABS: BASOPHILS ABSOLUTE AUTO 0.04 K/uL (0.02-0.10); BASOPHILS PERCENT AUTO 0.5 % (0.0-0.5); EOSINOPHILS ABSOLUTE AUTO 0.25 K/uL (0.04-0.40); EOSINOPHILS PERCENT AUTO 3.2 % (1.0-5.0); HEMATOCRIT 29.1 % (40.0-54.0); HEMOGLOBIN 9.4 g/dL (13.0-18.0); LYMPHOCYTES ABSOLUTE AUTO 1.94 K/uL (1.50-4.00); LYMPHOCYTES PERCENT AUTO 24.5 % (20.0-40.0); MEAN CORPUSCULAR HGB CONC 32.3 g/dL (31.0-35.0); MEAN CORPUSCULAR VOLUME 90 fL (76-96); MONOCYTES ABSOLUTE AUTO 0.47 K/uL (0.20-0.80); MONOCYTES PERCENT AUTO 5.9 % (3.0-10.0); NEUTROPHILS ABSOLUTE AUTO 5.22 K/uL (2.00-7.50); NEUTROPHILS PERCENT AUTO 65.9 % (45.0-70.0); PLATELET COUNT,PLT 343 K/uL (150-400); RED BLOOD CELL COUNT 3.24 M/uL (4.50-6.50); RED CELL DISTRIBUTION WIDTH 17.8 % (11.0-16.0); WHITE BLOOD CELL COUNT,WBC 7.9 K/uL (4.0-11.0)
[2024-02-11 08:55] LABS: A/G RATIO 0.5 (0.8-2.0); ALBUMIN 2.3 g/dL (3.4-5.0); ALKALINE PHOSPHATASE 144 U/L (46-116); ANION GAP 15.1 mmol/L (5.0-15.0); ASPARTATE AMNIOTRANSFERASE,AST 13 U/L (15-37); BILIRUBIN TOTAL 0.4 mg/dL (0.0-1.0); BLOOD UREA NITROGEN,BUN 15 mg/dL (8-26); CALCIUM 8.4 mg/dL (8.5-10.1); CARBON DIOXIDE,CO2 23.7 mmol/L (21.0-32.0); CHLORIDE,CL 105 mmol/L (98-107); CREATININE 1.25 mg/dL (0.70-1.30); ESTIMATED GFR 60 mL/min (>60); GLUCOSE RANDOM 94 mg/dL (74-100); MAGNESIUM 1.8 mg/dL (1.8-2.4); POTASSIUM,K 3.8 mmol/L (3.5-5.1); SODIUM,NA 140 mmol/L (136-145)
[2024-02-11 09:12] LABS: ALANINE AMINOTRANSFERASE,ALT 10 U/L (12-78)
[2024-02-12] MEDS: Zinc Oxide 20% Oint 56.7 GM Tube TOP PRN (08:05)
[2024-02-12] MEDS: Gabapentin 100 MG Cap PO SCH (17:18)
[2024-02-12] MEDS: QUEtiapine 25 MG Tab PO SCH (19:42)
[2024-02-12] MEDS: oxyCODONE 5 MG Tab PO PRN (19:53)
[2024-02-12] MEDS: Lactated Ringers 1,000 ML IV SCH (23:33)
[2024-02-13] MEDS: Ondansetron 4 MG/2 ML SDV IVPUSH PRN (22:54)
[2024-02-14] MEDS: Lactated Ringers 1,000 ML IV SCH (10:16)
[2024-02-14] MEDS: Acetaminophen/HYDROcodone 325-5 MG Tab PO PRN (19:50)
[2024-02-15 08:51] LABS: HEMATOCRIT 26.8 % (40.0-54.0); HEMOGLOBIN 8.5 g/dL (13.0-18.0); MEAN CORPUSCULAR HEMOGLOBIN 28.6 pg (27.0-32.0); MEAN CORPUSCULAR HGB CONC 31.7 g/dL (31.0-35.0); MEAN PLATELET VOLUME 11.2 fL (6.0-10.0); RED BLOOD CELL COUNT 2.97 M/uL (4.50-6.50); RED CELL DISTRIBUTION WIDTH 18.2 % (11.0-16.0); WHITE BLOOD CELL COUNT,WBC 7.3 K/uL (4.0-11.0)
[2024-02-15 09:00] LABS: BUN/CREATININE RATIO 16.7 (6-25); CARBON DIOXIDE,CO2 23.4 mmol/L (21.0-32.0); CREATININE 1.14 mg/dL (0.70-1.30); EST CRCL DRUG DOSING (CG) 61.45 mL/min; POTASSIUM,K 4.4 mmol/L (3.5-5.1)
[2024-02-15 10:56] LABS: BASOPHILS ABSOLUTE AUTO 0.05 K/uL (0.02-0.10); BASOPHILS PERCENT AUTO 0.8 % (0.0-0.5); EOSINOPHILS ABSOLUTE AUTO 0.18 K/uL (0.04-0.40); EOSINOPHILS PERCENT AUTO 2.8 % (1.0-5.0); HEMATOCRIT 27.8 % (40.0-54.0); LYMPHOCYTES ABSOLUTE AUTO 1.34 K/uL (1.50-4.00); LYMPHOCYTES PERCENT AUTO 20.9 % (20.0-40.0); MEAN CORPUSCULAR HEMOGLOBIN 28.8 pg (27.0-32.0); MEAN CORPUSCULAR VOLUME 90 fL (76-96); MEAN PLATELET VOLUME 10.8 fL (6.0-10.0); MONOCYTES ABSOLUTE AUTO 0.37 K/uL (0.20-0.80); MONOCYTES PERCENT AUTO 5.8 % (3.0-10.0); NEUTROPHILS ABSOLUTE AUTO 4.46 K/uL (2.00-7.50); NEUTROPHILS PERCENT AUTO 69.7 % (45.0-70.0); PLATELET COUNT,PLT 327 K/uL (150-400); RED BLOOD CELL COUNT 3.09 M/uL (4.50-6.50); RED CELL DISTRIBUTION WIDTH 18.2 % (11.0-16.0); WHITE BLOOD CELL COUNT,WBC 6.4 K/uL (4.0-11.0)
[2024-02-15 11:05] LABS: HEMOGLOBIN 8.9 g/dL (13.0-18.0)
[2024-02-15 11:14] LABS: A/G RATIO 0.5 (0.8-2.0); ALBUMIN 2.2 g/dL (3.4-5.0); ANION GAP 15.9 mmol/L (5.0-15.0); BILIRUBIN TOTAL 0.3 mg/dL (0.0-1.0); BUN/CREATININE RATIO 16.5 (6-25); CALCIUM 8.1 mg/dL (8.5-10.1); CARBON DIOXIDE,CO2 22.7 mmol/L (21.0-32.0); CREATININE 1.15 mg/dL (0.70-1.30); EST CRCL DRUG DOSING (CG) 60.92 mL/min; POTASSIUM,K 4.6 mmol/L (3.5-5.1); PROTEIN TOTAL,TP 6.5 g/dL (6.4-8.2)
[2024-02-15] MEDS: oxyCODONE 5 MG Tab PO PRN (23:25)
[2024-02-18] MEDS: Ibuprofen 400 MG Tab PO PRN (17:38)
[2024-02-19] MEDS: fentaNYL 12 MCG/HR Transdermal Patch TRDERM SCH (10:02)
[2024-02-21] MEDS: Lisinopril 5 MG Tab PO SCH (10:07)
[2024-02-22 08:14] LABS: BASOPHILS ABSOLUTE AUTO 0.06 K/uL (0.02-0.10); BASOPHILS PERCENT AUTO 0.8 % (0.0-0.5); EOSINOPHILS ABSOLUTE AUTO 0.41 K/uL (0.04-0.40); EOSINOPHILS PERCENT AUTO 5.8 % (1.0-5.0); HEMATOCRIT 28.2 % (40.0-54.0); HEMOGLOBIN 9.1 g/dL (13.0-18.0); LYMPHOCYTES ABSOLUTE AUTO 2.25 K/uL (1.50-4.00); LYMPHOCYTES PERCENT AUTO 31.8 % (20.0-40.0); MEAN CORPUSCULAR HEMOGLOBIN 28.9 pg (27.0-32.0); MEAN CORPUSCULAR HGB CONC 32.3 g/dL (31.0-35.0); MEAN CORPUSCULAR VOLUME 90 fL (76-96); MEAN PLATELET VOLUME 10.9 fL (6.0-10.0); MONOCYTES ABSOLUTE AUTO 0.54 K/uL (0.20-0.80); MONOCYTES PERCENT AUTO 7.6 % (3.0-10.0); NEUTROPHILS ABSOLUTE AUTO 3.82 K/uL (2.00-7.50); PLATELET COUNT,PLT 362 K/uL (150-400); RED BLOOD CELL COUNT 3.15 M/uL (4.50-6.50); RED CELL DISTRIBUTION WIDTH 19.4 % (11.0-16.0); WHITE BLOOD CELL COUNT,WBC 7.1 K/uL (4.0-11.0)
[2024-02-22 08:50] LABS: A/G RATIO 0.5 (0.8-2.0); ALBUMIN 2.2 g/dL (3.4-5.0); ANION GAP 14.5 mmol/L (5.0-15.0); BILIRUBIN TOTAL 0.5 mg/dL (0.0-1.0); BUN/CREATININE RATIO 12.4 (6-25); C-REACTIVE PROTEIN 25.5 mg/L (<5.0); CALCIUM 8.4 mg/dL (8.5-10.1); CARBON DIOXIDE,CO2 24.9 mmol/L (21.0-32.0); CREATININE 1.05 mg/dL (0.70-1.30); EST CRCL DRUG DOSING (CG) 66.72 mL/min; POTASSIUM,K 3.4 mmol/L (3.5-5.1); PROTEIN TOTAL,TP 6.4 g/dL (6.4-8.2)
[2024-02-22 09:18] LABS: SEDIMENTATION RATE MANUAL 30 mm/hr (0-20)
[2024-02-23] MEDS: Alteplase 2 MG Vial IVPUSH ONE (17:35)
[2024-02-23] MEDS ORDERED: HYDROCORTISONE 2.5% TOP PRN (19:31)
[2024-02-23] MEDS ORDERED: Hydrocortisone 2.5% Crm 30 GM Tube TOP PRN (19:55)
[2024-02-23] MEDS: Lactobacillus Acidophilus/Lactobacillus Sporogenes (Probiotic) Tab PO SCH (20:03)
[2024-02-23] MEDS: Mupirocin Oint 22 GM Tube TOP PRN (20:06)
[2024-02-23] MEDS: Nystatin Topical Powder 15 GM Bottle TOP PRN (20:07)
[2024-02-26 10:29] LABS: INFLUENZA A NAA NEGATIVE (NEGATIVE); INFLUENZA B NAA NEGATIVE (NEGATIVE); RESPIRATORY SYNCYTIAL VIR NAA NEGATIVE (NEGATIVE)
[2024-02-26 10:32] LABS: CORONAVIRUS COVID-19 NAA POSITIVE (NEGATIVE)
[2024-02-29 08:38] LABS: BASOPHILS ABSOLUTE AUTO 0.02 K/uL (0.02-0.10); BASOPHILS PERCENT AUTO 0.6 % (0.0-0.5); EOSINOPHILS ABSOLUTE AUTO 0.17 K/uL (0.04-0.40); EOSINOPHILS PERCENT AUTO 4.9 % (1.0-5.0); HEMATOCRIT 25.5 % (40.0-54.0); HEMOGLOBIN 8.1 g/dL (13.0-18.0); LYMPHOCYTES ABSOLUTE AUTO 1.36 K/uL (1.50-4.00); LYMPHOCYTES PERCENT AUTO 39.2 % (20.0-40.0); MEAN CORPUSCULAR HEMOGLOBIN 28.8 pg (27.0-32.0); MEAN CORPUSCULAR HGB CONC 31.8 g/dL (31.0-35.0); MEAN CORPUSCULAR VOLUME 91 fL (76-96); MEAN PLATELET VOLUME 11.5 fL (6.0-10.0); MONOCYTES ABSOLUTE AUTO 0.35 K/uL (0.20-0.80); MONOCYTES PERCENT AUTO 10.1 % (3.0-10.0); NEUTROPHILS ABSOLUTE AUTO 1.57 K/uL (2.00-7.50); NEUTROPHILS PERCENT AUTO 45.2 % (45.0-70.0); PLATELET COUNT,PLT 222 K/uL (150-400); RED BLOOD CELL COUNT 2.81 M/uL (4.50-6.50); WHITE BLOOD CELL COUNT,WBC 3.5 K/uL (4.0-11.0)
[2024-02-29 08:44] LABS: A/G RATIO 0.5 (0.8-2.0); ALBUMIN 1.9 g/dL (3.4-5.0); ANION GAP 11.8 mmol/L (5.0-15.0); BILIRUBIN TOTAL 0.4 mg/dL (0.0-1.0); BUN/CREATININE RATIO 17.1 (6-25); CARBON DIOXIDE,CO2 26.4 mmol/L (21.0-32.0); CREATININE 1.23 mg/dL (0.70-1.30); EST CRCL DRUG DOSING (CG) 56.96 mL/min; POTASSIUM,K 4.2 mmol/L (3.5-5.1)
[2024-02-29 09:06] LABS: C-REACTIVE PROTEIN 72.5 mg/L (<5.0)
[2024-02-29 09:45] LABS: SEDIMENTATION RATE MANUAL 20 mm/hr (0-20)
[2024-03-02 11:31] LABS: APPEARANCE,URINE CLEAR (CLEAR); BILIRUBIN,URINE NEGATIVE (NEGATIVE); COLOR,URINE YELLOW; GLUCOSE,URINE NEGATIVE (NEGATIVE); KETONES,URINE NEGATIVE (NEGATIVE); LEUKOCYTE ESTERASE,URINE NEGATIVE (NEGATIVE); NITRITE,URINE NEGATIVE (NEGATIVE); OCCULT BLOOD,URINE SMALL (NEGATIVE); PH,URINE 6.5 (5.0-8.0); PROTEIN,URINE NEGATIVE (NEGATIVE); UROBILINOGEN,URINE 0.2 E.U./dL (0.2-1.0)
[2024-03-02 11:51] LABS: EPITHELIAL CELLS,URINE RARE /HPF; RBC,URINE 0-5 /HPF; WBC,URINE NOT SEEN /HPF
[2024-03-02 12:53] LABS: BASOPHILS ABSOLUTE AUTO 0.01 K/uL (0.02-0.10); BASOPHILS PERCENT AUTO 0.2 % (0.0-0.5); EOSINOPHILS ABSOLUTE AUTO 0.05 K/uL (0.04-0.40); EOSINOPHILS PERCENT AUTO 1.1 % (1.0-5.0); HEMATOCRIT 29.4 % (40.0-54.0); HEMOGLOBIN 9.7 g/dL (13.0-18.0); LYMPHOCYTES ABSOLUTE AUTO 1.71 K/uL (1.50-4.00); MEAN CORPUSCULAR VOLUME 88 fL (76-96); MEAN PLATELET VOLUME 10.2 fL (6.0-10.0); MONOCYTES PERCENT AUTO 6.5 % (3.0-10.0); NEUTROPHILS ABSOLUTE AUTO 2.55 K/uL (2.00-7.50); NEUTROPHILS PERCENT AUTO 55.2 % (45.0-70.0); PLATELET COUNT,PLT 304 K/uL (150-400); RED BLOOD CELL COUNT 3.35 M/uL (4.50-6.50); RED CELL DISTRIBUTION WIDTH 18.6 % (11.0-16.0); WHITE BLOOD CELL COUNT,WBC 4.6 K/uL (4.0-11.0)
[2024-03-02 13:32] LABS: A/G RATIO 0.5 (0.8-2.0); ALBUMIN 2.3 g/dL (3.4-5.0); ANION GAP 11.9 mmol/L (5.0-15.0); BILIRUBIN TOTAL 0.7 mg/dL (0.0-1.0); BUN/CREATININE RATIO 13.7 (6-25); CALCIUM 8.2 mg/dL (8.5-10.1); CARBON DIOXIDE,CO2 26.4 mmol/L (21.0-32.0); CREATININE 1.02 mg/dL (0.70-1.30); EST CRCL DRUG DOSING (CG) 68.68 mL/min; POTASSIUM,K 3.3 mmol/L (3.5-5.1); PROTEIN TOTAL,TP 6.9 g/dL (6.4-8.2)
[2024-03-03] MEDS: Zolpidem 5 MG Tab PO PRN (00:39)
[2024-03-04] MEDS: Potassium Chloride 20 MEQ Tab.ER PO ONE (15:49)
[2024-03-06] MEDS: Bisacodyl 5 MG Tab PO SCH (16:15)
[2024-03-06] MEDS: Polyethylene Glycol 3350 Powder 17 GM Packet PO SCH (16:15)
[2024-03-07 08:01] LABS: BASOPHILS ABSOLUTE AUTO 0.04 K/uL (0.02-0.10); BASOPHILS PERCENT AUTO 0.5 % (0.0-0.5); EOSINOPHILS ABSOLUTE AUTO 0.34 K/uL (0.04-0.40); EOSINOPHILS PERCENT AUTO 4.7 % (1.0-5.0); HEMATOCRIT 30.4 % (40.0-54.0); HEMOGLOBIN 9.9 g/dL (13.0-18.0); LYMPHOCYTES ABSOLUTE AUTO 1.87 K/uL (1.50-4.00); LYMPHOCYTES PERCENT AUTO 25.6 % (20.0-40.0); MEAN CORPUSCULAR HEMOGLOBIN 28.6 pg (27.0-32.0); MEAN CORPUSCULAR HGB CONC 32.6 g/dL (31.0-35.0); MEAN CORPUSCULAR VOLUME 88 fL (76-96); MEAN PLATELET VOLUME 11.1 fL (6.0-10.0); MONOCYTES ABSOLUTE AUTO 0.48 K/uL (0.20-0.80); MONOCYTES PERCENT AUTO 6.6 % (3.0-10.0); NEUTROPHILS ABSOLUTE AUTO 4.58 K/uL (2.00-7.50); NEUTROPHILS PERCENT AUTO 62.6 % (45.0-70.0); PLATELET COUNT,PLT 307 K/uL (150-400); RED BLOOD CELL COUNT 3.46 M/uL (4.50-6.50); RED CELL DISTRIBUTION WIDTH 19.2 % (11.0-16.0); WHITE BLOOD CELL COUNT,WBC 7.3 K/uL (4.0-11.0)
[2024-03-07 08:18] LABS: ALBUMIN 2.4 g/dL (3.4-5.0); ANION GAP 12.9 mmol/L (5.0-15.0); BILIRUBIN TOTAL 0.7 mg/dL (0.0-1.0); BUN/CREATININE RATIO 9.4 (6-25); C-REACTIVE PROTEIN 14.9 mg/L (<5.0); CALCIUM 8.4 mg/dL (8.5-10.1); CARBON DIOXIDE,CO2 27.5 mmol/L (21.0-32.0); CREATININE 0.96 mg/dL (0.70-1.30); EST CRCL DRUG DOSING (CG) 72.6 mL/min; POTASSIUM,K 3.4 mmol/L (3.5-5.1); PROTEIN TOTAL,TP 6.8 g/dL (6.4-8.2)
[2024-03-07 08:19] LABS: A/G RATIO 0.6 (0.8-2.0)
[2024-03-07 09:00] LABS: SEDIMENTATION RATE MANUAL 19 mm/hr (0-20)
[2024-03-08 08:06] VITALS: BP 179/86; PULSE 57
== END 2024-03-08 10:47 | disposition home or self-care (01) | DRG 948 ==
LOC: LB.MS 14:11 → EDSTATUS 14:24 → LB.MS 02-17 15:00
PROVIDERS: ADMIT Nurse Practitioner Family; ATTEND Nurse Practitioner Family
DX: R53.81 Other malaise (principal); M86.8X9 Other osteomyelitis, unspecified sites; E46 Unspecified protein-calorie malnutrition; I50.32 Chronic diastolic (congestive) heart failure; I48.19 Other persistent atrial fibrillation; I34.0 Nonrheumatic mitral (valve) insufficiency; E78.5 Hyperlipidemia, unspecified; S41.102S Unspecified open wound of left upper arm, sequela; S72.002D Fracture of unspecified part of neck of left femur, subsequent encounter for closed fracture with routine healing; T81.31XS Disruption of external operation (surgical) wound, not elsewhere classified, sequela; N40.0 Benign prostatic hyperplasia without lower urinary tract symptoms; G89.29 Other chronic pain; M54.9 Dorsalgia, unspecified; M10.9 Gout, unspecified; M19.90 Unspecified osteoarthritis, unspecified site; F32.A Depression, unspecified; H91.90 Unspecified hearing loss, unspecified ear; L89.159 Pressure ulcer of sacral region, unspecified stage; Z98.1 Arthrodesis status; Z79.2 Long term (current) use of antibiotics; Z79.01 Long term (current) use of anticoagulants; Z86.16 Personal history of COVID-19; Z98.49 Cataract extraction status, unspecified eye; Z90.89 Acquired absence of other organs; Z98.890 Other specified postprocedural states; Z79.899 Other long term (current) drug therapy
CPT/HCPCS: 0241U; 36415; 51702; 72158; 72197; 73700-50; 80048; 80053; 81001; 83735; 85025; 85027; 85651; 86140; 86580; 87045; 87046; 87427; 87493; 93246; 97110-GO; 97110-GP; 97162-GP; 97165-GO; 97530-GO; 97530-GP; 99211; 99306; 99308; 99315; A9270-GY; J1335; J1885; J2310; J2405; J2997; J3490; J7050; J7120

== ENCOUNTER 2024-04-10 10:59 | Emergency (ER) | payer BC, MEDICARE ==
[2024-04-10 11:20] VITALS: PULSE 43
[2024-04-10 12:38] VITALS: BP 163/68
== END 2024-04-10 11:55 | disposition home or self-care (01) ==
LOC: LB.ED 10:59
DX: S00.83XA Contusion of other part of head, initial encounter (principal); S09.90XA Unspecified injury of head, initial encounter; I10 Essential (primary) hypertension; I48.91 Unspecified atrial fibrillation; Z86.16 Personal history of COVID-19; Z79.899 Other long term (current) drug therapy; Z79.82 Long term (current) use of aspirin; Z91.048 Other nonmedicinal substance allergy status; W06.XXXA Fall from bed, initial encounter
CPT/HCPCS: 70450; 99283

== ENCOUNTER 2024-04-10 15:47 | Emergency (ER) | payer BC, MEDICARE ==
[2024-04-10 17:06] LABS: HEMOGLOBIN 10.5 g/dL (13.0-18.0); MEAN CORPUSCULAR HGB CONC 33.9 g/dL (31.0-35.0); MEAN PLATELET VOLUME 11.2 fL (6.0-10.0); RED BLOOD CELL COUNT 3.28 M/uL (4.50-6.50); WHITE BLOOD CELL COUNT,WBC 6.8 K/uL (4.0-11.0)
[2024-04-10 17:32] LABS: ANION GAP 14.2 mmol/L (5.0-15.0); BUN/CREATININE RATIO 27.4 (6-25); CALCIUM 8.7 mg/dL (8.5-10.1); CARBON DIOXIDE,CO2 21.5 mmol/L (21.0-32.0); CREATININE 1.06 mg/dL (0.70-1.30); EST CRCL DRUG DOSING (CG) 66.09 mL/min; POTASSIUM,K 4.7 mmol/L (3.5-5.1)
[2024-04-10 17:43] LABS: APPEARANCE,URINE CLEAR (CLEAR); BILIRUBIN,URINE SMALL (NEGATIVE); COLOR,URINE OTHER; GLUCOSE,URINE NEGATIVE (NEGATIVE); KETONES,URINE NEGATIVE (NEGATIVE); NITRITE,URINE NEGATIVE (NEGATIVE); OCCULT BLOOD,URINE LARGE (NEGATIVE); PH,URINE 5.5 (5.0-8.0); PROTEIN,URINE 100 mg/dL (NEGATIVE); UROBILINOGEN,URINE 0.2 E.U./dL (0.2-1.0)
[2024-04-10 17:44] LABS: LEUKOCYTE ESTERASE,URINE NEGATIVE (NEGATIVE)
[2024-04-10 17:45] LABS: HYALINE CASTS,URINE OCCASIONAL /HPF; RBC,URINE 75-100 /HPF; SQUAMOUS EPITHELIAL CELLS,UR OCCASIONAL /HPF; WBC,URINE 0-5 /HPF
[2024-04-10] MEDS: Furosemide 20 MG Tab PO ONE (17:57)
[2024-04-10 18:23] VITALS: BP 154/90; PULSE 48
== END 2024-04-10 18:43 | disposition home or self-care (01) ==
LOC: LB.ED 15:47
DX: R33.9 Retention of urine, unspecified (principal); I11.0 Hypertensive heart disease with heart failure; I50.814 Right heart failure due to left heart failure; R60.0 Localized edema; E87.1 Hypo-osmolality and hyponatremia; I48.91 Unspecified atrial fibrillation; Z86.16 Personal history of COVID-19; Z79.01 Long term (current) use of anticoagulants; Z79.899 Other long term (current) drug therapy; Z91.048 Other nonmedicinal substance allergy status
CPT/HCPCS: 36415; 51702; 51798; 80048; 81001; 83880; 85027; 93005; 99283-25; A9270-GY; C1758

== ENCOUNTER 2024-05-18 20:55 | Emergency (ER) | payer MEDICARE ==
[2024-05-18 22:47] VITALS: BP 186/80
[2024-05-18 22:48] VITALS: PULSE 48
== END 2024-05-18 22:25 ==
LOC: LB.ED 20:55
DX: K40.90 Unilateral inguinal hernia, without obstruction or gangrene, not specified as recurrent (principal); J90 Pleural effusion, not elsewhere classified; I48.91 Unspecified atrial fibrillation; I10 Essential (primary) hypertension; Z79.899 Other long term (current) drug therapy
CPT/HCPCS: 74176; 99283

== ENCOUNTER 2024-09-29 07:57 | Day surgery (SDC) | payer MEDICARE, MEDICAID ==
[~2024-09-29 07:57] MED LIST: Acetaminophen/HYDROcodone 325-5 MG Tab PO PRN; Lactated Ringers 1,000 ML IV SCH; Ondansetron 4 MG/2 ML SDV IVPUSH PRN; ceFAZolin 2 GM in Sodium Chloride 0.9% 100 ML IV SCH
[2024-09-29] MEDS: ceFAZolin 1 GM Vial ONE (08:27)
[2024-09-29] MEDS: Lactated Ringers 1,000 ML IV SCH (08:37)
[2024-09-29] MEDS: ceFAZolin 2 GM in Sodium Chloride 0.9% 100 ML IV ONE (09:17)
[2024-09-29] MEDS: ceFAZolin 1 GM Vial IV ONE (09:18)
[2024-09-29] MEDS ORDERED: Atropine 0.4 MG/ML SDV ONE (11:00)
[2024-09-29] MEDS ORDERED: fentaNYL 100 MCG/2 ML SDV ONE (11:00)
[2024-09-29] MEDS ORDERED: Propofol 200 MG/20 ML SDV ONE (11:00)
[2024-09-29] MEDS: Morphine 2 MG/ML SYRINGE IVPUSH PRN (11:30)
[2024-09-29 11:35] VITALS: BP 179/78; PULSE 67
== END 2024-09-29 12:50 ==
LOC: LB.SDS 07:57
PROVIDERS: ATTEND Surgery
DX: K40.90 Unilateral inguinal hernia, without obstruction or gangrene, not specified as recurrent (principal); I11.0 Hypertensive heart disease with heart failure; I50.9 Heart failure, unspecified; E78.00 Pure hypercholesterolemia, unspecified; Z79.899 Other long term (current) drug therapy; Z87.891 Personal history of nicotine dependence
CPT/HCPCS: C1781; J0461; J0690; J2270; J2704; J3010; J7120